=== PATIENT | male | born 1935 ===

== ENCOUNTER → 2017-12-13 18:57 | Outpatient (REF) | payer MEDICARE, SELFPAY ==
[2017-12-13 19:28] LABS: Prothrombin Time 33.3 SECONDS (10.1-12.7)
== END ==
LOC: LAB 18:57
DX: I48.0 Paroxysmal atrial fibrillation (principal)
CPT/HCPCS: 36415; 85610

== ENCOUNTER → 2017-12-20 18:52 | Outpatient (REF) | payer MEDICARE, SELFPAY ==
[2017-12-20 19:35] LABS: Prothrombin Time 53.1 SECONDS (10.1-12.7)
[2017-12-20 19:38] LABS: INR 4.7 (0.9-1.3)
== END ==
LOC: LAB 18:52
PROVIDERS: Visit Provider Nurse Practitioner Family
DX: I48.0 Paroxysmal atrial fibrillation (principal)
CPT/HCPCS: 85610

== ENCOUNTER → 2017-12-25 18:50 | Outpatient (REF) | payer MEDICARE, SELFPAY ==
[2017-12-25 19:12] LABS: BUN Creatinine Ratio 19.3 (6-22); Blood Urea Nitrogen 29 mg/dL (9-20); Calcium 8.9 mg/dL (8.4-10.2); Carbon Dioxide 26 mmol/L (22-32); Chloride 104 mmol/L (98-107); Estimated Glomerular Filt Rate 44.8 mL/min (>60); Glucose 153 mg/dL (80-110); HEMOLYSIS 19 (0-50); Potassium 4.6 mmol/L (3.4-5.1); Sodium 141 mmol/L (137-145)
== END ==
LOC: LAB 18:50
DX: R60.9 Edema, unspecified (principal)
CPT/HCPCS: 36415; 80048; 83880

== ENCOUNTER → 2018-01-03 12:20 | Outpatient (REF) | payer MEDICARE, SELFPAY ==
[2018-01-03 13:03] LABS: INR 2.3 (0.9-1.3); Prothrombin Time 25.7 SECONDS (10.1-12.7)
[2018-01-05 14:04] LABS: PSA, Total < 0.1 ng/mL (< 4.1)
== END ==
LOC: LAB 12:20
PROVIDERS: Visit Provider Nurse Practitioner Family
DX: I48.0 Paroxysmal atrial fibrillation (principal)
CPT/HCPCS: 84153; 84154; 85610

== ENCOUNTER → 2018-01-10 13:41 | Outpatient (REF) | payer MEDICARE, SELFPAY ==
[2018-01-10 14:03] LABS: INR 2.2 (0.9-1.3); Prothrombin Time 23.8 SECONDS (10.1-12.7)
== END ==
LOC: LAB 13:41
PROVIDERS: Visit Provider Physician Assistant Medical
DX: I48.0 Paroxysmal atrial fibrillation (principal)
CPT/HCPCS: 85610

== ENCOUNTER → 2018-01-22 14:38 | Outpatient (REF) | payer MEDICARE, SELFPAY ==
[2018-01-22 16:10] LABS: INR 2.7 (0.9-1.3); Prothrombin Time 29.2 SECONDS (10.1-12.7)
[2018-01-22 16:21] LABS: Hemoglobin A1C% w Est Avg Glu 8.7 % (4.0-6.0)
[2018-01-22 17:45] LABS: BUN Creatinine Ratio 21.7 (6-22); Blood Urea Nitrogen 39 mg/dL (9-20); Calcium 8.8 mg/dL (8.4-10.2); Carbon Dioxide 25 mmol/L (22-32); Chloride 104 mmol/L (98-107); Estimated Glomerular Filt Rate 36.3 mL/min (>60); Glucose 157 mg/dL (80-110); HEMOLYSIS < 15 (0-50); Potassium 4.7 mmol/L (3.4-5.1); Sodium 141 mmol/L (137-145)
== END ==
LOC: LAB 14:38
PROVIDERS: Visit Provider Physician Assistant Medical
DX: Z51.81 Encounter for therapeutic drug level monitoring (principal)
CPT/HCPCS: 80048; 83036; 85610

== ENCOUNTER → 2018-02-05 13:32 | Outpatient (REF) | payer MEDICARE, SELFPAY ==
[2018-02-05 14:05] LABS: INR 3.1 (0.9-1.3); Prothrombin Time 33.9 SECONDS (10.1-12.7)
== END ==
LOC: LAB 13:32
PROVIDERS: Visit Provider Nurse Practitioner Family
DX: I48.0 Paroxysmal atrial fibrillation (principal)
CPT/HCPCS: 85610

== ENCOUNTER → 2018-02-26 13:36 | Outpatient (REF) | payer MEDICARE, SELFPAY ==
[2018-02-26 14:10] LABS: INR 2.5 (0.9-1.3); Prothrombin Time 27.5 SECONDS (10.1-12.7)
== END ==
LOC: LAB 13:36
PROVIDERS: Visit Provider Urology
DX: I48.0 Paroxysmal atrial fibrillation (principal)
CPT/HCPCS: 85610

== ENCOUNTER → 2018-03-12 13:31 | Outpatient (REF) | payer MEDICARE, SELFPAY ==
[2018-03-12 14:15] LABS: BUN Creatinine Ratio 18.8 (6-22); Blood Urea Nitrogen 30 mg/dL (9-20); Calcium 8.9 mg/dL (8.4-10.2); Carbon Dioxide 21 mmol/L (22-32); Chloride 105 mmol/L (98-107); Estimated Glomerular Filt Rate 41.6 mL/min (>60); Glucose 125 mg/dL (80-110); Potassium 4.6 mmol/L (3.4-5.1); Sodium 140 mmol/L (137-145)
[2018-03-12 14:16] LABS: HEMOLYSIS 62 (0-50)
== END ==
LOC: LAB 13:31
PROVIDERS: Visit Provider Physician Assistant Medical
DX: E11.9 Type 2 diabetes mellitus without complications (principal)
CPT/HCPCS: 80048

== ENCOUNTER → 2018-03-28 13:18 | Outpatient (REF) | payer MEDICARE, SELFPAY ==
[2018-03-28 13:54] LABS: INR 1.8 (0.9-1.3); Prothrombin Time 20.9 SECONDS (10.1-12.7)
== END ==
LOC: LAB 13:18
PROVIDERS: Visit Provider Nurse Practitioner Family
DX: Z51.81 Encounter for therapeutic drug level monitoring (principal)
CPT/HCPCS: 36415; 85610

== ENCOUNTER → 2018-04-25 13:41 | Outpatient (REF) | payer MEDICARE, SELFPAY ==
[2018-04-25 14:14] LABS: INR 2.4 (0.9-1.3)
== END ==
LOC: LAB 13:41
PROVIDERS: Visit Provider Physician Assistant Medical
DX: I48.0 Paroxysmal atrial fibrillation (principal)
CPT/HCPCS: 36415; 85610

== ENCOUNTER → 2018-05-23 14:08 | Outpatient (REF) | payer MEDICARE, SELFPAY ==
[2018-05-23 14:19] LABS: Prothrombin Time 35.4 SECONDS (10.1-12.7)
== END ==
LOC: LAB 14:08
PROVIDERS: Visit Provider Physician Assistant Medical
DX: I48.0 Paroxysmal atrial fibrillation (principal)
CPT/HCPCS: 85610

== ENCOUNTER → 2018-06-20 13:39 | Outpatient (REF) | payer MEDICARE, SELFPAY ==
[2018-06-20 14:05] LABS: INR 3.5 (0.9-1.3); Prothrombin Time 40.7 SECONDS (10.1-12.7)
[2018-06-21 09:08] LABS: Albumin 3.3 g/dL (3.5-5.0); BUN Creatinine Ratio 23.8 (6-22); Blood Urea Nitrogen 38 mg/dL (9-20); Calcium 8.6 mg/dL (8.4-10.2); Carbon Dioxide 22 mmol/L (22-32); Chloride 107 mmol/L (98-107); Estimated Glomerular Filt Rate 41.5 mL/min (>60); Glucose 100 mg/dL (80-110); Phosphorous 4.1 mg/dL (2.3-3.7); Sodium 139 mmol/L (137-145)
[2018-06-21 09:21] LABS: HEMOLYSIS 62 (0-50); Potassium 4.8 mmol/L (3.4-5.1)
[2018-06-26 07:34] LABS: PSA, Total < 0.1 ng/mL (< 4.1)
== END ==
LOC: LAB 13:39
PROVIDERS: Visit Provider Physician Assistant Medical
DX: I48.0 Paroxysmal atrial fibrillation (principal); N40.1 Benign prostatic hyperplasia with lower urinary tract symptoms; N18.9 Chronic kidney disease, unspecified
CPT/HCPCS: 36415; 80069; 84153; 84154; 85610

== ENCOUNTER → 2018-07-04 14:45 | Outpatient (REF) | payer MEDICARE, SELFPAY ==
[2018-07-04 16:38] LABS: INR 1.9 (0.9-1.3); Prothrombin Time 21.9 SECONDS (10.1-12.7)
== END ==
LOC: LAB 14:45
PROVIDERS: Visit Provider Physician Assistant Medical
DX: Z51.81 Encounter for therapeutic drug level monitoring (principal)
CPT/HCPCS: 36415; 85610

== ENCOUNTER → 2018-07-25 13:44 | Outpatient (REF) | payer MEDICARE, SELFPAY ==
[2018-07-25 14:28] LABS: INR 2.8 (0.9-1.3); Prothrombin Time 32.8 SECONDS (10.1-12.7)
== END ==
LOC: LAB 13:44
PROVIDERS: Visit Provider Physician Assistant Medical
DX: I48.0 Paroxysmal atrial fibrillation (principal)
CPT/HCPCS: 36415; 85610

== ENCOUNTER → 2018-08-20 13:48 | Outpatient (ROUT) | payer MEDICARE, SELFPAY ==
[2018-08-20 14:22] LABS: INR 2.1 (0.9-1.3); Prothrombin Time 23.9 SECONDS (10.1-12.7)
== END ==
PROVIDERS: Visit Provider Physician Assistant Medical
DX: I48.0 Paroxysmal atrial fibrillation (principal)
CPT/HCPCS: 85610